=== PATIENT | female | born 1950 | race Two or more races ===

== ENCOUNTER → 2024-10-05 | Outpatient (CLI) | payer MEDICARE, SELFPAY ==
--- NOTE | 2024-10-05 09:45 | XR_ITS ---
Examination: Screening digital mammography, bilateral Computer aided detection 3-D breast Tomosynthesis, bilateral Date and time of exam: 10/05/2024, 9:34 AM Comparisons: July 2022 through November 2023 Indications: Screening Technique: Nonmagnified MLO, CC views of the breasts to been obtained, reconstructed from 3-D Tomosynthesis images. R2 computer aided detection program utilized for evaluation of suspicious masses and/or abnormal calcifications. 3-D Tomosynthesis images obtained. Technologist: Findings: There are scattered areas of fibroglandular density. No evidence of abnormal masses or suspicious calcifications. Impression: BI-RADS category 1: Negative findings (within normal) Recommend 1 year follow-up mammogram
== END | disposition home or self-care (01) ==
PROVIDERS: Referring Provider Physician Assistant; Visit Provider Physician Assistant
DX: Z12.31 Encounter for screening mammogram for malignant neoplasm of breast (principal); R92.313 Mammographic fatty tissue density, bilateral breasts
CPT/HCPCS: 77063; 77067

== ENCOUNTER 2025-06-11 10:23 | Outpatient (AMB) | payer MEDICARE, SELFPAY ==
[2025-06-11 10:46] VITALS: BP 157/92; PULSE 79; RESP 18; TEMP 36.5; O2SAT 97; BMI 26.2
--- NOTE | 2025-06-11 10:46 | GYNCLNT_ITS ---
Vital Signs 06/11/25 10:46 Height 1.6 m Height Method Stated Weight 67.245 kg Weight Measurement Method Standing Scale BMI 26.2 BP 157/92 H Blood Pressure Source Automatic Cuff Blood Pressure Location Right Upper Arm Position Sitting Respiration 18 Pulse 79 Pulse Source Monitor Temp 97.7 F Temp Source Temporal Artery Scan Pulse Oximetry (%) 97 Oxygen Delivery Method Room Air Allergies/Home Meds Allergies & Medications Allergies No Known Allergies Allergy (Verified 06/11/25 10:48) Medication Reconciliation amlodipine 5 mg tablet 5 mg PO QDAY 04/14/22 [History Confirmed 06/11/25] losartan 100 mg tablet 100 mg PO QDAY 04/14/22 [History Confirmed 06/11/25] Intake Visit Data Collection New Patient or Established: Established Patient (seen at [facility] within 3 years) Reason for Visit:: REFERRAL UTEROVAGINAL PROLAPSE Seen by Clinical Staff ONLY (RN/MA): No Surplus Property Disposal Agent Required: Yes Surplus Property Disposal Agent's name/title: GILDARDO DIAZ MA Do You Feel Safe at Home: Yes Authorities Contacted: N/A PCP or OBGYN visit in last 3 months: No Hx Now: No Are you currently on any form of Control: No Pain Present Currently: Yes Pain Location: Unable to identify (VAGINAL AREA) Pain Scale Used: Gordillo-Kaur/Numerical Pain scale:: 5 Smoking Status Smoking Status: Never smoker Immunizations Flu Vaccine in the Last 12 Months: No Flu Vaccine Exclusion Criteria: No Exclusion Criteria Endocrinology Teacher history Endocrinology Teacher History Menopausal: Yes If menopausal, at what age did it occur: 38 Currently sexually active: No REGIONAL CLINICAL DIRECTOR: Past Medical History Past Medical History: No Hx Neurological Disorders, Yes Hx Cardiac Disorders, Yes Hx Hypertension, No Hx Gastrointestinal Disorders, No Hx Renal Disease, No Hx Diabetes Mellitus Type 1, No Hx Diabetes Mellitus Type 2, Yes Hx Tubal Ligation and Yes Hx Hysterectomy (Complete) Questionnaires Covid-19 Vaccine Questionnaire Has patient been vacinated for Covid-19 Have you been vacinated for Covid-19: No PHQ-9 PHQ-2 Over the last 2 weeks, how often have you been bothered by any of the following problems? 1. Little interest or pleasure in doing things: not at all 2. Feeling down, depressed, or hopeless: not at all Total score: 0 PHQ-9 3. Trouble falling or staying asleep, or sleeping too much: Not at all 4. Feeling tired or having little energy: Not at all 5. Poor appetite or overeating: Not at all 6. Feeling bad about yourself - or that you are a failure or have let yourself or your family down: Not at all 7. Trouble concentrating on things, such as reading the newspaper or watching television: Not at all 8. Moving or speaking so slowly that other people could have noticed? - Or the opposite - being so fidgety or restless that you have been moving around a lot more than usual: not at all 9. Thoughts that you would be better off or of hurting yourself in some way: Not at all Total score: 0 If you checked off any problems, how difficult have these problems made it for you to do your work, take care of things at home, or get along with other people?: not difficult at all Source: Developed by Drs. Haroldo Cummings, Rochelle Ghosh, Lalo Mcmullen and colleagues, with an educational shivani from [employer]. Depression screen completed yes Social History Living Situation History Marital Status: Unknown Lives With: Family Housing: House Tobacco History Smoking Status: Never smoker Second Hand Smoke Exposure: No Alcohol History Alcohol Intake: Never Domestic Abuse History Do You Feel Safe at Home: Yes History of Present Illness HPI Narrative Uterovaginal prolapse with pessary in place, pain with bowel movements Viola Diaz is a 74-year-old female with a history of uterovaginal prolapse who presents for pessary management. She currently has a pessary in place that was previously managed at a different facility by Dr. Zhang, who has since left the [facility]. The patient reports that the pessary is generally working well for her. However, she experiences pain during bowel movements. Upon examination, it was discovered that the pessary was positioned upside down, which was causing her discomfort. The patient manages the pessary independently at home, cleaning it approximately once a month or when it falls out. The patient reports experiencing significant stress recently, which may be contributing to her elevated blood pressure readings of 146/84 and 136/86 during the visit. Medical History: - Uterovaginal prolapse with pessary management Social History: - Reports experiencing significant stress currently Exam Narrative Physical exam: - Genitourinary: Pelvic examination performed. Pessary found to be positioned upside down. Pessary removed and noted to have no odor. Pessary repositioned with long part oriented upward to prevent pressure on bladder or rectum. General General Appearance: alert, in no apparent distress and healthy appearing Head Head exam: atraumatic Neck Neck exam: Present normal inspection and trachea midline Chest Chest inspection: Present normal inspection and symmetric chest wall rise External exam: Present normal external exam; Absent tenderness Neuro Neurological exam: Present oriented X3 Psych Psychiatric exam: Present normal affect and normal mood Office Procedures [facility] LOC & Office Proc's Nursing/Assessment Patient Status: Established Patient OB Clinic Nursing Assessment: Medication Reconciliation, Update PMH in EMR and Vital Signs OB Clinic Coordination of Care: Complex Care and Chronic Disease 1-5, Education Complex Pt/Fam, Consent,records obtained, informed consent, Lab and Imaging orders, Results/Orders obtained and Staff clarify orders Established Patient Charge Established Patient Point Assignment: 110 Established Patient Point Charge: EP Level 3 (80-115) Assessment & Plan Diagnosis / Problem List (1) Uterovaginal prolapse, unspecified: Status: Acute Plan Uterovaginal prolapse with pessary Assessment: Patient has established uterovaginal prolapse currently managed with pessary. During examination, pessary was found to be malpositioned (upside down), which was causing discomfort during bowel movements. The pessary showed no signs of infection or malodor, indicating adequate hygiene maintenance. Patient manages pessary independently at home, only replacing it when it falls out approximately once monthly. Plan: - Pessary removal, cleaning, and proper repositioning completed during visit - Patient education provided on correct pessary orientation (long part should be upward) to prevent pressure on bladder and rectum - Schedule monthly follow-up appointments for professional pessary cleaning and maintenance Advanced Care Planning Advance care planning discussed with:: patient
== END 2025-06-11 10:54 | disposition home or self-care (01) ==
LOC: HODSOBC 10:24
PROVIDERS: Supervising Provider Obstetrics & Gynecology; Visit Provider Obstetrics & Gynecology
DX: N81.4 Uterovaginal prolapse, unspecified (principal); I10 Essential (primary) hypertension; Z90.710 Acquired absence of both cervix and uterus; Z79.899 Other long term (current) drug therapy
CPT/HCPCS: 99213; G0463